=== PATIENT | female | born 1945 | race Caucasian/White ===

== ENCOUNTER 2017-08-20 16:17 | Emergency (ER) | payer OTHER, BC ==
[~2017-08-20] VITALS: Ht 162.6 cm; Wt 64.4 kg
[~2017-08-20 16:17] MED LIST: ACIPHEX 20 MG T20 MG PO; AMBIEN 10 MG TA10 MG PO; ASA5UEC OR; ASPIRIN325 PO; ATENOLOL 50 MG50 M1 OR; CARAFATE 1 GM TA1 G1 PO; CARAFATE 11 GM/10 M1 PO; CIPROFLOXACIN500 M3 PO; CITRATE OF MAG296 ML PO; COLACE100 MG; COLACE100 MG PO; ENTOCORT EC 3 MG3 MG PO; FLAGYL500 MG PO; GABAPENTIN 100100 MG PO; HYDROCODON-ACE1 EAC7; LEVSIN0.125 MG PO; LISINOPRIL-HCT1 EAC2 PO; LISINOPRIL20 MG PO; LOPERAMIDE 2 MG2 M1 PO; LOTRISONE CREAM15 GM TP; PRILOSEC 20 MG20 MG PO; ROBAXIN 750 MG750 M1 PO; TESSALON PERLE100 MG PO; TRIAMCINOLONE16.5 GM NASAL
[2017-08-20] MEDS ORDERED: KEFLEX500 MG PO (16:49)
[2017-08-20] MEDS ORDERED: LOTRISONE CREAM15 GM TOP (16:49)
[2017-08-20] MEDS ORDERED: HYDROCHLOROTHIA25 M2 PO (16:55)
[2017-08-20] MEDS ORDERED: COZAAR 50 MG TA50 M2 PO (16:55)
[2017-08-20] MEDS ORDERED: MAGOX 400400 MG PO (16:56)
[2017-08-20] MEDS ORDERED: MULTIPLE VITAM1 EAC2 PO (16:56)
[2017-08-20] MEDS ORDERED: POTASSIUM600 MG PO (16:57)
== END 2017-08-20 16:58 | disposition home or self-care (01) ==
LOC: ER 16:17
DX: L03.316 Cellulitis of umbilicus (principal); I10 Essential (primary) hypertension; K21.9 Gastro-esophageal reflux disease without esophagitis; Z90.710 Acquired absence of both cervix and uterus; Z98.890 Other specified postprocedural states; Z87.891 Personal history of nicotine dependence; Z88.2 Allergy status to sulfonamides; Z88.5 Allergy status to narcotic agent

== ENCOUNTER 2017-12-15 08:05 | Emergency (ER) | payer OTHER, BC ==
[~2017-12-15] VITALS: Ht 162.6 cm; Wt 62.6 kg
--- NOTE | ~2017-12-15 | EKG ---
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
[~2017-12-15 08:05] MED LIST changes: +COZAAR 50 MG TA50 M2 PO; +HYDROCHLOROTHIA25 M2 PO; +KEFLEX500 MG PO; +LOTRISONE CREAM15 GM TOP; +MAGOX 400400 MG PO; +MULTIPLE VITAM1 EAC2 PO; +POTASSIUM600 MG PO
[2017-12-15 08:49] LABS: HEMATOCRIT 46.3 % (37.0-47.0); HEMOGLOBIN 15.8 gm/dL (12.0-15.0); MCH 29.5 pg (26.0-34.0); MCHC 34.1 g/dL (28.0-37.0); MCV 86.7 fL (80.0-100.0); PLATELET COUNT 189 thou/uL (150-400); RBC 5.34 mil/uL (4.20-5.00); RDW 12.9 % (10.5-14.5); WBC 4.2 thou/uL (4.0-11.0)
[2017-12-15] MEDS ORDERED: AUGMENTIN400 MG/53 PO (08:54)
[2017-12-15 08:58] LABS: ANION GAP 9 mmol/L (7-16); BUN 17 mg/dL (7-18); CALCIUM 9.1 mg/dL (8.5-10.1); CHLORIDE 95 mmol/L (98-107); CO2 31 mmol/L (21-32); CREATININE 0.8 mg/dL (0.6-1.0); GLUCOSE 110 mg/dL (74-106); POTASSIUM 3.3 mmol/L (3.5-5.1); SODIUM 135 mmol/L (136-145)
[2017-12-15 08:59] LABS: URINE BILIRUBIN NEGATIVE (Negative); URINE BLOOD TRACE (Negative); URINE CLARITY CLEAR; URINE COLOR YELLOW; URINE GLUCOSE-RANDOM* NEGATIVE (Negative); URINE KETONES NEGATIVE (Negative); URINE LEUKOCYTES-REFLEX 1+ (Negative); URINE NITRITE-REFLEX NEGATIVE (Negative); URINE PROTEIN (DIPSTICK) NEGATIVE (Negative); URINE SPECIFIC GRAVITY 1.015 (1.005-1.035); URINE UROBILINOGEN 0.2 E.U./dl (0.2-1.0)
[2017-12-15 09:07] LABS: LIPASE 115 U/L (73-393); SGOT 39 U/L (15-37); SGPT 27 U/L (30-65); TOTAL BILIRUBIN 0.4 mg/dL (<0.1-1.0); TOTAL PROTEIN 7.4 g/dL (6.4-8.2); TROPONIN-I < 0.04 ng/mL (<0.06)
[2017-12-15 09:28] LABS: CASTS None Seen /LPF (None Seen); CRYSTALS None Seen /LPF (None Seen); SQUAMOUS 4-10 Moderate /LPF (0-3); URINE WBC-REFLEX 6-15 Few /HPF (0-5)
[2017-12-15 09:29] LABS: URINE RBC 0-2 Rare /HPF (0-2)
[2017-12-15 09:34] LABS: ABSOLUTE NEUTROPHILS 2.7 thou/uL (1.4-8.2); ATYPICAL LYMPHS 5 %
[2017-12-15 09:35] LABS: ANISOCYTOSIS SLIGHT
[2017-12-15] MEDS ORDERED: ANTIVERT25 MG PO (09:38)
[2017-12-15] MEDS ORDERED: ZOFRAN ODT8 MG PO (09:38)
[2017-12-15 09:58] VITALS: BP 113/63
== END 2017-12-15 09:59 | disposition home or self-care (01) ==
LOC: ER 08:05
PROVIDERS: Emergency Medicine
DX: R11.2 Nausea with vomiting, unspecified (principal); R42 Dizziness and giddiness; J06.9 Acute upper respiratory infection, unspecified; I10 Essential (primary) hypertension; K21.9 Gastro-esophageal reflux disease without esophagitis; Z90.49 Acquired absence of other specified parts of digestive tract; Z90.710 Acquired absence of both cervix and uterus; Z88.1 Allergy status to other antibiotic agents; Z88.5 Allergy status to narcotic agent; Z87.891 Personal history of nicotine dependence

== ENCOUNTER 2018-01-12 15:02 | Emergency (ER) | payer OTHER, BC ==
[~2018-01-12] VITALS: Ht 162.6 cm; Wt 62.6 kg
[~2018-01-12 15:02] MED LIST changes: +ANTIVERT25 MG PO; +AUGMENTIN400 MG/53 PO; +ZOFRAN ODT8 MG PO
[2018-01-12] MEDS ORDERED: TRAMADOL 50 MG50 MG PO (16:01)
[2018-01-12 16:11] VITALS: BP 124/59
== END 2018-01-12 16:11 | disposition home or self-care (01) ==
LOC: ER 15:02
DX: S80.01XA Contusion of right knee, initial encounter (principal); I10 Essential (primary) hypertension; K21.9 Gastro-esophageal reflux disease without esophagitis; Z90.710 Acquired absence of both cervix and uterus; Z90.49 Acquired absence of other specified parts of digestive tract; Z88.5 Allergy status to narcotic agent; Z88.1 Allergy status to other antibiotic agents; Z88.8 Allergy status to other drugs, medicaments and biological substances; Z87.891 Personal history of nicotine dependence; W07.XXXA Fall from chair, initial encounter; Y93.89 Activity, other specified; Y92.89 Other specified places as the place of occurrence of the external cause; Y99.8 Other external cause status

== ENCOUNTER 2018-07-22 08:25 | Emergency (ER) | payer OTHER, BC ==
[~2018-07-22] VITALS: Ht 162.6 cm; Wt 59.0 kg
[~2018-07-22 08:25] MED LIST changes: +TRAMADOL 50 MG50 MG PO
[2018-07-22 09:25] LABS: BASOPHILS 0.3 % (0.0-2.0); EOSINOPHILS 0.2 % (0.0-3.0); HEMATOCRIT 41.3 % (37.0-47.0); HEMOGLOBIN 14.1 gm/dL (12.0-15.0); LYMPHOCYTES 7.5 % (24.0-44.0); MCH 29.8 pg (26.0-34.0); MCHC 34.3 g/dL (28.0-37.0); MONOCYTES 9.8 % (1.0-8.0); PLATELET COUNT 244 thou/uL (150-400); POLYS 82.2 % (36.0-66.0); RBC 4.74 mil/uL (4.20-5.00); RDW 12.9 % (10.5-14.5); WBC 8.5 thou/uL (4.0-11.0)
[2018-07-22 09:28] LABS: CREATININE 0.9 mg/dL (0.6-1.0); POTASSIUM 3.7 mmol/L (3.5-5.1)
[2018-07-22 09:33] LABS: ALBUMIN 3.3 g/dL (3.4-5.0); TOTAL BILIRUBIN 0.4 mg/dL (<0.1-1.0); TOTAL PROTEIN 6.8 g/dL (6.4-8.2)
[2018-07-22] MEDS ORDERED: PROBIOTIC & AC1 EACH PO (09:50)
== END 2018-07-22 10:50 | disposition home or self-care (01) ==
LOC: ER 08:25
PROVIDERS: Emergency Medicine
DX: R19.7 Diarrhea, unspecified (principal); I10 Essential (primary) hypertension; K21.9 Gastro-esophageal reflux disease without esophagitis; Z87.891 Personal history of nicotine dependence; Z88.5 Allergy status to narcotic agent; Z88.8 Allergy status to other drugs, medicaments and biological substances; Z88.2 Allergy status to sulfonamides; Z90.710 Acquired absence of both cervix and uterus; Z90.49 Acquired absence of other specified parts of digestive tract

== ENCOUNTER 2018-07-24 10:16 | Inpatient (IN) | payer OTHER, BC ==
[~2018-07-24] VITALS: Ht 162.6 cm; Wt 58.1 kg
--- NOTE | ~2018-07-24 | EKG ---
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
[~2018-07-24 10:16] MED LIST changes: +PROBIOTIC & AC1 EACH PO
[2018-07-24 10:17] VITALS: BP 101/56
[2018-07-24 10:42] LABS: URINE BILIRUBIN NEGATIVE (Negative); URINE BLOOD 2+ (Negative); URINE CLARITY CLEAR; URINE COLOR YELLOW; URINE GLUCOSE-RANDOM* NEGATIVE (Negative); URINE KETONES 2+ (Negative); URINE NITRITE-REFLEX NEGATIVE (Negative); URINE PROTEIN (DIPSTICK) TRACE (Negative); URINE SPECIFIC GRAVITY 1.015 (1.005-1.035); URINE UROBILINOGEN 0.2 E.U./dl (0.2-1.0)
[2018-07-24 10:45] LABS: URINE LEUKOCYTES-REFLEX 1+ (Negative)
[2018-07-24 10:52] LABS: ABSOLUTE NEUTROPHILS 14.8 thou/uL (1.4-8.2); BASOPHILS 0.2 % (0.0-2.0); EOSINOPHILS 0.1 % (0.0-3.0); HEMATOCRIT 44.7 % (37.0-47.0); HEMOGLOBIN 15.6 gm/dL (12.0-15.0); LYMPHOCYTES 5.3 % (24.0-44.0); MCH 30.3 pg (26.0-34.0); MCV 86.6 fL (80.0-100.0); MONOCYTES 7.7 % (1.0-8.0); PLATELET COUNT 271 thou/uL (150-400); POLYS 86.7 % (36.0-66.0); RBC 5.16 mil/uL (4.20-5.00); RDW 13.2 % (10.5-14.5); WBC 17.1 thou/uL (4.0-11.0)
[2018-07-24 10:56] LABS: MUCUS >6 Heavy strn/LPF (None Seen); SQUAMOUS 4-10 Moderate /LPF (0-3); URINE RBC 0-2 Rare /HPF (0-2)
[2018-07-24 10:57] LABS: BACTERIA-REFLEX None Seen /HPF (None Seen); CRYSTALS None Seen /LPF (None Seen); URINE WBC-REFLEX 6-15 Few /HPF (0-5)
[2018-07-24 11:00] LABS: ANION GAP 6 mmol/L (7-16); BUN 8 mg/dL (7-18); CALCIUM 9.7 mg/dL (8.5-10.1); CHLORIDE 93 mmol/L (98-107); CO2 31 mmol/L (21-32); CREATININE 0.8 mg/dL (0.6-1.0); GLUCOSE 125 mg/dL (74-106); POTASSIUM 3.1 mmol/L (3.5-5.1); SODIUM 130 mmol/L (136-145)
[2018-07-24 11:08] LABS: ALBUMIN 2.8 g/dL (3.4-5.0); LIPASE 51 U/L (73-393); SGOT 24 U/L (15-37); SGPT 16 U/L (30-65); TOTAL BILIRUBIN 0.6 mg/dL (<0.1-1.0); TOTAL PROTEIN 6.8 g/dL (6.4-8.2); TROPONIN-I <0.06 ng/mL (<0.06)
[2018-07-24 12:07] VITALS: BP 108/51
[2018-07-24 12:41] VITALS: BP 108/51
[2018-07-24 13:10] VITALS: BP 118/52
[2018-07-24 16:35] VITALS: BP 109/50
[2018-07-25 04:10] VITALS: BP 116/59
[2018-07-25 04:48] LABS: BASOPHILS 0.2 % (0.0-2.0); CALCIUM 8.2 mg/dL (8.5-10.1); CREATININE 0.5 mg/dL (0.6-1.0); EOSINOPHILS 0.5 % (0.0-3.0); HEMATOCRIT 39.2 % (37.0-47.0); LYMPHOCYTES 6.9 % (24.0-44.0); MCH 29.3 pg (26.0-34.0); MCHC 33.9 g/dL (28.0-37.0); MCV 86.6 fL (80.0-100.0); MONOCYTES 8.1 % (1.0-8.0); PLATELET COUNT 272 thou/uL (150-400); POLYS 84.3 % (36.0-66.0); RBC 4.52 mil/uL (4.20-5.00); RDW 12.9 % (10.5-14.5); WBC 15.4 thou/uL (4.0-11.0)
[2018-07-25 05:04] LABS: POTASSIUM 2.9 mmol/L (3.5-5.1)
[2018-07-25 05:07] LABS: HEMOGLOBIN 13.3 gm/dL (12.0-15.0)
[2018-07-25 07:43] VITALS: BP 124/61
[2018-07-25 16:00] VITALS: BP 87/45
[2018-07-25 17:28] VITALS: BP 96/51
[2018-07-25 19:27] VITALS: BP 112/66
[2018-07-25] MEDS ORDERED: AMBIEN 5 MG TABL5 M1 PO (21:15)
[2018-07-26 05:04] VITALS: BP 116/62
[2018-07-26 07:38] VITALS: BP 115/55
[2018-07-26 15:18] VITALS: BP 133/65
[2018-07-26 20:50] VITALS: BP 114/55
[2018-07-27 05:39] VITALS: BP 142/68
[2018-07-27 07:45] VITALS: BP 118/64
[2018-07-27] MEDS ORDERED: FIRVANQ50 MG/1 ML PO (09:58)
[2018-07-27] MEDS ORDERED: ACIDOPHILUS1 EAC4 PO (09:59)
[2018-07-27 10:12] VITALS: BP 118/64
== END 2018-07-27 12:09 | disposition home or self-care (01) | DRG 871 ==
LOC: ER 10:16 → 4W 12:20 → EROBS 12:20 → 4W 13:11 → ENTRNSPT 07-27 11:53 → EDTRNSPTSTS 07-27 11:55 → 4W 07-27 12:09
PROVIDERS: Emergency Medicine; Internal Medicine
DX: A41.9 Sepsis, unspecified organism (principal); E43 Unspecified severe protein-calorie malnutrition; A04.72 Enterocolitis due to Clostridium difficile, not specified as recurrent; K52.1 Toxic gastroenteritis and colitis; I10 Essential (primary) hypertension; E83.51 Hypocalcemia; T36.95XA Adverse effect of unspecified systemic antibiotic, initial encounter; E86.0 Dehydration; K52.831 Collagenous colitis; G89.29 Other chronic pain; R10.9 Unspecified abdominal pain; E87.6 Hypokalemia; K21.9 Gastro-esophageal reflux disease without esophagitis; Z90.710 Acquired absence of both cervix and uterus; Z98.84 Bariatric surgery status; Z90.49 Acquired absence of other specified parts of digestive tract; Z88.6 Allergy status to analgesic agent; Z88.2 Allergy status to sulfonamides; Z88.8 Allergy status to other drugs, medicaments and biological substances; Z87.891 Personal history of nicotine dependence; Z79.899 Other long term (current) drug therapy; Z87.11 Personal history of peptic ulcer disease; E83.42 Hypomagnesemia; G47.00 Insomnia, unspecified; K22.70 Barrett's esophagus without dysplasia; Z68.22 Body mass index [BMI] 22.0-22.9, adult
CPT/HCPCS: 10045; 10047

== ENCOUNTER 2019-05-20 17:35 | Emergency (ER) | payer OTHER, BC ==
[~2019-05-20] VITALS: Ht 157.5 cm; Wt 54.4 kg
[~2019-05-20 17:35] MED LIST changes: +ACIDOPHILUS1 EAC4 PO; +AMBIEN 5 MG TABL5 M1 PO; +FIRVANQ50 MG/1 ML PO
[2019-05-20 17:49] LABS: ABSOLUTE NEUTROPHILS 3.8 thou/uL (1.4-8.2); BASOPHILS 0.8 % (0.0-2.0); EOSINOPHILS 3.4 % (0.0-3.0); HEMATOCRIT 39.7 % (37.0-47.0); HEMOGLOBIN 13.3 gm/dL (12.0-15.0); LYMPHOCYTES 26.9 % (24.0-44.0); MCH 30.1 pg (26.0-34.0); MCHC 33.5 g/dL (28.0-37.0); MCV 89.7 fL (80.0-100.0); MONOCYTES 9.1 % (1.0-8.0); PLATELET COUNT 253 thou/uL (150-400); POLYS 59.8 % (36.0-66.0); RBC 4.42 mil/uL (4.20-5.00); WBC 6.4 thou/uL (4.0-11.0)
[2019-05-20] MEDS ORDERED: LOSARTAN-HCTZ1 EAC1 PO (17:51)
[2019-05-20] MEDS ORDERED: NEURONTIN 300300 M1 PO (17:51)
[2019-05-20 17:56] LABS: ANION GAP 5 mmol/L (7-16); BUN 12 mg/dL (7-18); CALCIUM 8.8 mg/dL (8.5-10.1); CHLORIDE 105 mmol/L (98-107); CO2 31 mmol/L (21-32); CREATININE 0.6 mg/dL (0.6-1.0); GLUCOSE 141 mg/dL (74-106); POTASSIUM 3.9 mmol/L (3.5-5.1); SODIUM 141 mmol/L (136-145)
[2019-05-20 18:06] LABS: ALBUMIN 3.3 g/dL (3.4-5.0); SGOT 23 U/L (15-37); SGPT 28 U/L (30-65); TOTAL BILIRUBIN 0.4 mg/dL (<0.1-1.0); TOTAL PROTEIN 6.3 g/dL (6.4-8.2); TROPONIN-I <0.06 ng/mL (<0.06)
[2019-05-20] MEDS ORDERED: TESSALON PERLE100 MG PO (19:12)
[2019-05-20 19:21] VITALS: BP 119/65
--- NOTE | 2019-05-21 19:53 | EKG ---
[address] [employer] [place] [address] ELECTROCARDIOGRAM REPORT Name: TAYLOR ANDREWSJORISavi WEN Room #: DEP [facility]#: [id number] ������������������ Admission: 05/20/19 ������������������ Attend Phys: Discharge: 05/20/19 ������������������ Date of : 49 Report #: [id number] ����������������������������������������������������������������� [id number] THIS REPORT FOR: //name// 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 : 1945 Requested By: Zuri Hassan Order Number: [id number] MD: Derrick Thomson Measurements Intervals [place] Rate: 62 P: 33 NV: 155 QRS: 9 QRSD: 91 T: 52 QT: 408 QTc: 415 Interpretive Statements Sinus rhythm Baseline wander in lead(s) V5 Compared to ECG 07/24/2018 10:35:33 No significant changes Electronically Signed On 05-21-2019 19:53:23 CDT by Derrick Thomson [email or web address] ��������������������������������������������� <ELECTRONICALLY SIGNED> ���������������������������������������� By: Derrick Thomson MD ��������������������������������������������� 05/21/191952 43 43 Derrick Thomson MD /[place]
== END 2019-05-20 19:22 | disposition home or self-care (01) ==
LOC: ER 17:35
PROVIDERS: Physician Assistant
DX: J00 Acute nasopharyngitis [common cold] (principal); R07.89 Other chest pain; R05 Cough; K21.9 Gastro-esophageal reflux disease without esophagitis; I10 Essential (primary) hypertension; Z90.49 Acquired absence of other specified parts of digestive tract; Z87.891 Personal history of nicotine dependence; Z88.2 Allergy status to sulfonamides; Z88.5 Allergy status to narcotic agent

== ENCOUNTER 2019-08-20 12:48 | Emergency (ER) | payer OTHER, BC ==
[~2019-08-20] VITALS: Ht 162.6 cm; Wt 56.7 kg
[2019-08-20 12:48] VITALS: BP 110/57
[~2019-08-20 12:48] MED LIST changes: +LOSARTAN-HCTZ1 EAC1 PO; +NEURONTIN 300300 M1 PO
[2019-08-20] MEDS ORDERED: NORCO 5-325 TA1 EAC1 PO (15:16)
== END 2019-08-20 15:23 | disposition home or self-care (01) ==
LOC: ER 12:48
DX: S80.01XA Contusion of right knee, initial encounter (principal); M54.5 Low back pain; M53.3 Sacrococcygeal disorders, not elsewhere classified; I10 Essential (primary) hypertension; K21.9 Gastro-esophageal reflux disease without esophagitis; Z90.49 Acquired absence of other specified parts of digestive tract; Z88.6 Allergy status to analgesic agent; Z88.5 Allergy status to narcotic agent; Z88.2 Allergy status to sulfonamides; Z87.891 Personal history of nicotine dependence; W18.39XA Other fall on same level, initial encounter; Y92.89 Other specified places as the place of occurrence of the external cause; Y93.89 Activity, other specified; Y99.8 Other external cause status

== ENCOUNTER 2019-08-30 13:30 | Emergency (ER) | payer OTHER, BC ==
[~2019-08-30] VITALS: Ht 162.6 cm; Wt 56.7 kg
[~2019-08-30 13:30] MED LIST changes: +NORCO 5-325 TA1 EAC1 PO
[2019-08-30 13:54] LABS: URINE BILIRUBIN NEGATIVE (Negative); URINE BLOOD 1+ (Negative); URINE CLARITY CLEAR; URINE COLOR YELLOW; URINE GLUCOSE-RANDOM* NEGATIVE (Negative); URINE KETONES NEGATIVE (Negative); URINE LEUKOCYTES-REFLEX NEGATIVE (Negative); URINE NITRITE-REFLEX NEGATIVE (Negative); URINE PROTEIN (DIPSTICK) NEGATIVE (Negative); URINE SPECIFIC GRAVITY <= 1.005 (1.005-1.035); URINE UROBILINOGEN 0.2 E.U./dl (0.2-1.0)
[2019-08-30 14:03] LABS: CASTS None Seen /LPF (None Seen); CRYSTALS None Seen /LPF (None Seen); SQUAMOUS 0-3 Few /LPF (0-3)
[2019-08-30 14:04] LABS: BACTERIA-REFLEX 1-9 Few /HPF (None Seen); URINE RBC 0-2 Rare /HPF (0-2); URINE WBC-REFLEX None Seen /HPF (0-5)
[2019-08-30] MEDS ORDERED: FLAGYL500 M1 PO (15:11)
[2019-08-30] MEDS ORDERED: CIPRO500 M1 PO (15:11)
[2019-08-30] MEDS ORDERED: ZOFRAN ODT4 MG PO (15:11)
[2019-08-30 15:36] VITALS: BP 124/87
== END 2019-08-30 15:37 | disposition home or self-care (01) ==
LOC: ER 13:30
PROVIDERS: Nurse Practitioner Family
DX: K57.32 Diverticulitis of large intestine without perforation or abscess without bleeding (principal); K21.9 Gastro-esophageal reflux disease without esophagitis; I10 Essential (primary) hypertension; Z90.49 Acquired absence of other specified parts of digestive tract; Z88.6 Allergy status to analgesic agent; Z88.5 Allergy status to narcotic agent; Z88.2 Allergy status to sulfonamides; Z87.891 Personal history of nicotine dependence